=== PATIENT | female | born 1975 | race African-American/Black ===

== ENCOUNTER 2016-08-23 22:24 | Emergency (ER) | payer OTHER ==
[~2016-08-23] VITALS: Ht 167.6 cm; Wt 58.6 kg
[~2016-08-23 22:24] MED LIST: ACID CONTROL150 MG PO; ANTIVERT25 MG PO; FLEXERIL10 MG PO; FLEXERIL5 MG PO; MOTRIN800 MG PO; NAPROXEN500 MG PO; VALIUM2 MG PO; VICODIN 5-3001 EACH PO; ZANTAC150 MG PO; ZOFRAN ODT4 MG PO; ZOFRAN4 MG PO
[2016-08-23 22:38] VITALS: BP 135/85
[2016-08-23 23:08] LABS: HEMATOCRIT 36.7 % (36.0-46.0); MCH 28.4 PG (29.0-34.0); MCHC 35.4 G/DL (30.0-36.0); MCV 80.3 FL (83-99); MEAN PLAT.VOLUME 10.1 uM^3 (9.5-12.4); PLATELET COUNT 275 K/uL (156-360); RBC DIS.WIDTH-CV 14.1 % (11.8-14.6); RBC DIS.WIDTH-SD 40.7 % (39-53); RED BLOOD COUNT 4.57 M/uL (3.80-5.20)
[2016-08-23 23:17] LABS: CHLORIDE 107 mEq/L (99-109); POTASSIUM 3.8 mEq/L (3.7-5.4); SODIUM 141 mEq/L (136-147)
[2016-08-23 23:19] LABS: GLUCOSE 86 mg/dL (70-99)
[2016-08-23 23:20] LABS: ANION GAP 11 MEQ/L (2-14)
[2016-08-23 23:21] LABS: TOTAL BILIRUBIN 0.3 mg/dL (0.0-1.0)
[2016-08-23 23:22] LABS: ALKALINE PHOSPHATASE 72 IU/L (3-129)
[2016-08-23 23:23] LABS: GFR ESTIMATE (CALCULATED) > 59 mL/min/
[2016-08-23 23:24] LABS: UREA NITROGEN (BUN) 12 mg/dL (9-23)
[2016-08-23 23:26] LABS: LIPASE 71 U/L (1.0-51.0)
[2016-08-23 23:32] LABS: QUANTITATIVE HCG < 4.0 MIU/ML
[2016-08-24 00:46] LABS: ADD MIUA? NO; BILIRUBIN NEGATIVE; BLOOD NEGATIVE; COLOR YELLOW ((YELLOW)); GLUCOSE (STRIP) NEGATIVE; KETONES NEGATIVE; LEUKOCYTES NEGATIVE; NITRITE NEGATIVE; PROTEIN (STRIP) NEGATIVE; SPECIFIC GRAVITY 1.014 (1.000-1.030); UCUL ADDED? NO; UROBILINOGEN 0.2 MG/DL (0.2-1.0)
== END 2016-08-24 00:56 | disposition left against medical advice (07) ==
LOC: EME 22:24
DX: R10.31 Right lower quadrant pain (principal)
CPT/HCPCS: 80053; 81003; 83690; 84702; 85027; 99281; 99283